=== PATIENT | female | born 1935 | race Caucasian/White ===

== ENCOUNTER 2017-08-03 11:32 | Inpatient (IN) ==
[2017-08-03 12:00] LABS: MANUAL DIFF NEEDED? NO
[2017-08-03 12:02] LABS: BASO% 0.5 % (0.0-0.8); EOS# 0.43 X1000 (0.0-0.7); EOS% 4.4 % (0.0-10.0); HEMATOCRIT 35.1 % (37.0-47.0); HEMOGLOBIN 11.9 g/dL (12.0-16.0); LYMPH# 1.09 X1000 (1.2-3.4); LYMPH% 11.1 % (20.5-51.1); MCH 29.1 PG (27-31); MCHC 33.9 g/dL (33-37); MCV 85.8 FL (81-99); MONO# 0.71 X1000 (0.11-0.59); MONO% 7.2 % (1.7-9.3); NEUT% 75.8 % (42.2-75.2); PLT 514 X1000 (130-400); RBC 4.09 XMIL (4.2-5.4)
--- NOTE | 2017-08-03 12:10 | EKG Report ---
Test Performed on : 08/03/2017 11:39:00 AM Test Reason : CHEST PAIN Blood Pressure : / mmHG Vent. Rate : 068 BPM Atrial Rate : 068 BPM P-R Int : 184 ms QRS Dur : 094 ms QT Int : 372 ms P-R-T Axes : 000 042 070 degrees QTc Int : 395 ms Normal sinus rhythm. Normal ECG When compared with ECG of 28-SEP-2016 17:11, Nonspecific T wave abnormality no longer evident in Anterior leads Unconfirmed Result
--- NOTE | 2017-08-03 12:14 | ED EKG INTERP ---
This chart was entered by Rona Metcalf Scribe, acting as scribe for Tan Escudero MD. EKG Interpretation - EKG Time of EKG reading by physician:: 11:39 EKG Read and Signed by:: Tan Escudero EKG Interpretation (*Must complete 3 of following elements*): Normal Rate: 68 Rhythm: normal sinus rhythm Comments: normal ECG Attestation - Physician/ NAYA Attestation The physician spent face to face time with patient:: Yes Advanced Practice Provider documentation review:: Supervising physician onsite and consulted in the evaluation and care of this patient. The physician did have a face to face encounter with the patient. This chart was documented by the indicated scribe, (Rona Metcalf Scribe) and accurately reflects the services I performed and decisions made by me, Tan Escudero MD, as attested by the provider's signature.
--- NOTE | 2017-08-03 12:41 | Diag Imaging Result Doc PS360 ---
EXAM: CHEST-PORTABLE HISTORY: weakness/cold sx TECHNIQUE: Portable AP COMPARISON: 09/28/2016 FINDINGS: The lungs are well expanded. The heart is not enlarged. The vessels are not distended. No pneumonia. No pleural effusions identified. IMPRESSION: Negative chest Electronically signed by Manish Ashton 08/03/2017 12:38 PM
[2017-08-03 12:56] LABS: ALBUMIN 3.5 g/dL (3.5-5.0); CALCIUM 9.1 mg/dL (8.8-10.2); MAGNESIUM 2.8 mg/dL (1.5-2.7); TOTAL BILIRUBIN 0.3 mg/dL (0.20-1.00); TOTAL PROTEIN 6.5 g/dL (6.3-8.3)
[2017-08-03 13:14] LABS: POTASSIUM 6.7 mmol/L (3.5-5.1)
[2017-08-03] MEDS ORDERED: ZOFRAN IV ONE (13:15)
[2017-08-03] MEDS ORDERED: NS 1,000 ML IV ONE ×2 (13:15→14:11)
[2017-08-03 13:53] LABS: ALBUMIN 3.2 g/dL (3.5-5.0); CALCIUM 8.9 mg/dL (8.8-10.2); TOTAL BILIRUBIN 0.2 mg/dL (0.20-1.00); TOTAL PROTEIN 6.1 g/dL (6.3-8.3)
[2017-08-03 13:57] LABS: POTASSIUM 6.7 mmol/L (3.5-5.1)
--- NOTE | 2017-08-03 14:17 | PROVIDER DOCUMENTATION ---
HPI-Abdominal Pain/GI Problem - General Chief Complaint: General Adult Stated Complaint: general Time Seen by Provider: 08/03/17 13:06 Source: patient, family (DAUGHTER) Allergies/Adverse Reactions: Patient Allergies Allergy/AdvReac Type Severity Reaction Status Date / Time No Known Allergies Allergy Verified 08/03/17 11:33 Home Medications: Home Medication List Medication Instructions Recorded Confirmed Last Taken Type Furosemide [Lasix] 40 mg PO DAILY 09/28/16 09/28/16 Unknown History Hydrocodone/APAP 5 mg/325 mg 5 mg PO 09/28/16 Unknown History [Keene-5] Penicillin V Potassium 500 mg PO 4XDAY #40 tablet 09/28/16 Unknown Rx Potassium Chloride 20 mg PO 09/28/16 Unknown History Valsartan/Hydrochlorothiazide 320 mg PO DAILY 09/28/16 09/28/16 Unknown History [Valsartan-Hctz 320-12.5 mg Tab] Penicillin V Potassium 500 mg PO Q6HR #28 tablet 05/12/17 Unknown Rx - History of Present Illness-ABD Nature of Presenting Problems: PT DAUGHTER STS THE WHOLE FAMILY HAS HAD STOMACH VIRUS BUT PT "JUST HASN'T GOTTEN BETTER SINCE". STS SHE HAS CONTINUED TO VOMIT AND HAS BEEN VERY WEEK ESPECIALLY THE PAST COUPLE OF DAYS. PT DENIES ABD PAIN AT PRESENT, STS HAS CHRONIC BACK PAIN THAT IS UNCOMFORTABLE. DENIES FEVER. Quality of Pain: reports: none Associated Symptoms: reports: diarrhea, fatigue, loss of appetite, nausea, vomiting, weakness Dark Stools Present?: reports: none noticed Review of Systems - Adult - REVIEW OF SYSTEMS - ADULT Constitutional: reports: fatique. denies: fever Eyes: reports: no symptoms reported Ears, Nose, Mouth & Throat: reports: no symptoms reported Cardiovascular: reports: no symptoms reported. denies: chest pain Respiratory: reports: no symptoms reported. denies: shortness of breath Gastrointestinal: reports: see HPI, abdominal pain, diarrhea, nausea, poor appetite, vomiting. denies: constipation Genitourinary: reports: no symptoms reported. denies: dysuria Musculoskeletal: reports: no symptoms reported Integumentary: reports: no symptoms reported Neurological: reports: no symptoms reported. denies: dizziness/vertigo, headache/migraines Psychiatric: reports: no symptoms reported Endocrine: reports: no symptoms reported Hematologic/Lymphatic: reports: no symptoms reported Allergic/Immunologic: reports: no symptoms reported All Other Systems: Reviewed and Negative Past History - Adult - PAST MEDICAL HISTORY-ADULT Review of Records: reports: Nursing Assessment Review, Medications Reviewed, Social history reviewed & non-contributory. Major Childhood Illnesses: reports: denies history Cardiovascular: reports: HTN, hyperlipidemia Respiratory: reports: denies history Gastrointestinal: reports: denies history Obstetrical/Gynecological: reports: denies history Genitourinary: reports: denies history Musculoskeletal: reports: denies history Neurological: reports: Alzheimer's, dementia Endocrine/Immune: reports: Diabetes Diabetes Type: Type 2 Diabetes controlled by:: PO Meds Other Conditions: reports: denies history - PRIOR SURGERIES/PROCEDURES Surgical/Procedure History: reports: appendectomy, cholecystectomy, hysterectomy - IMMUNIZATION STATUS Childhood Immunizations: See Nurse Assessment Flu Vaccine: See Nurse Assessment - FAMILY HISTORY Family History: reviewed, not pertinent Physical Exam-General - PHYSICAL EXAM-ADULT Initial Vital Signs Reviewed: Yes - CONSTITUTIONAL General Appearance: alert, no apparent distress, slow to respond - EYES Eyes: PERRL/EOMI, pink conjunctivae - HEAD, EARS, NOSE, MOUTH & THROAT HENMT: negative: moist mucous membranes (DRY) - RESPIRATORY Respiratory: chest non-tender, lungs clear, normal breath sounds, no pleuratic chest pain, no respiratory distress, no accessory muscle use - CARDIOVASCULAR Cardiovascular: regular rate, rhythm - GASTROINTESTINAL (ABDOMEN) Abdominal Exam: normal bowel sounds, non tender, soft, no organomegaly, no pulsatile mass. negative: distended, guarding, tenderness - MUSCULOSKELETAL Extremity: normal range of motion, normal inspection, normal capillary refill - SKIN Integumentary: normal color, normal turgor, warm/dry, rash (CANDIDAL INFECTION TO GROIN AND VAGINAL AREA) - NEUROLOGIC Neurologic: grossly normal, no motor/sensory deficits - PSYCHIATRIC Psych/Mental Status: normal mood/affect. negative: oriented x 3 (ORIENTED TO SELF ONLY) Progress - PLAN OF CARE/RESULTS Progress/Plan/Lab Results: Vital Signs - 8 hr 08/03/17 11:35 08/03/17 12:30 08/03/17 13:49 Temperature 97.0 F L Pulse Rate 69 64 68 Respiratory Rate 18 18 Blood Pressure 119/043 115/056 096/054 O2 Sat by Pulse Oximetry 97 99 99 Laboratory Results - last 24 hr 08/03/17 08/03/1717 11:55 11:55 11:55 WBC RBC Hgb Hct MCV MCH MCHC RDW Std Deviation Plt Count MPV Immature Gran % (Auto) Neut % (Auto) Lymph % (Auto) Ocean % (Auto) Eos % (Auto) Baso % (Auto) Immature Gran # (Auto) Neut # (Auto) Lymph # (Auto) Ocean # (Auto) Eos # (Auto) Baso # (Auto) Sodium 120 L* Potassium 6.7 H* Chloride 90 L Carbon Dioxide 18 L Anion Gap 12 BUN 89 H Creatinine 3.1 H Estimated GFR/1.73 m2 14 BUN/Creatinine Ratio 29 Glucose 114 H Calculated Osmolality 270 Calcium 9.1 Magnesium 2.8 H Total Bilirubin 0.30 AST 18 ALT 9 L Alkaline Phosphatase 64 Creatine Kinase 136 Troponin T 0.020 Lfj-C-Gtrfimrudos Pept 889 H Total Protein 6.5 Albumin 3.5 Globulin 3.0 Albumin/Globulin Ratio 1.0 08/03/17 08/03/17 11:55 13:20 WBC 9.86 RBC 4.09 L Hgb 11.9 L Hct 35.1 L MCV 85.8 MCH 29.1 MCHC 33.9 RDW Std Deviation 12.8 Plt Count 514 H MPV 8.0 Immature Gran % (Auto) 1.0 H Neut % (Auto) 75.8 H Lymph % (Auto) 11.1 L Ocean % (Auto) 7.2 Eos % (Auto) 4.4 Baso % (Auto) 0.5 Immature Gran # (Auto) 0.10 H Neut # (Auto) 7.48 H Lymph # (Auto) 1.09 L Ocean # (Auto) 0.71 H Eos # (Auto) 0.43 Baso # (Auto) 0.05 Sodium 121 L Potassium 6.7 H* Chloride 92 L Carbon Dioxide 17 L Anion Gap 13 BUN 90 H Creatinine 3.1 H Estimated GFR/1.73 m2 14 BUN/Creatinine Ratio 29 Glucose 107 H Calculated Osmolality 272 Calcium 8.9 Magnesium Total Bilirubin 0.20 AST 17 ALT 8 L Alkaline Phosphatase 61 Creatine Kinase Troponin T Kzi-I-Cfsjoklgrrc Pept Total Protein 6.1 L Albumin 3.2 L Globulin 3.0 Albumin/Globulin Ratio 1.0 Orders Category Date Time Status Cardiac Monitoring DIRECTED Care 08/03/17 11:42 Active Saline Loc NOW Care 08/03/17 11:42 Active CHEST-PORTABLE [RAD] Stat Exams 08/03/17 11:43 Completed CBC WITH ELECTRONIC DIFF [HEME] Stat Lab 08/03/17 11:55 Completed CK PROFILE [SP CHEM] Stat Lab 08/03/17 11:55 Completed CMP [COMPREHENSIVE METABOLIC PANEL] [CHEM] Stat Lab 08/03/17 13:20 Completed COMPREHENSIVE METABOLIC PANEL [CHEM] Stat Lab 08/03/17 11:55 Completed MAGNESIUM [CHEM] Stat Lab 08/03/17 11:55 Completed PRO B-NATRIURETIC PEPTIDE Stat Lab 08/03/17 11:55 Completed TROPONIN T Stat Lab 08/03/17 11:[address] W/POSS RFLX CULT [URINALYSIS] Stat Lab 08/03/17 13:27 Uncollected 0.9% Sodium Chloride Inj [Ns] 1,000 ml Med 08/03/17 14:11 Ordered IV 125 mls/hr 0.9% Sodium Chloride Inj [Ns] 1,000 ml Med 08/03/17 13:15 Active IV 999 mls/hr Ondansetron [Zofran] Med 08/03/17 13:15 Discontinued 4 mg IV NOW ONE EKG [EKG] Stat Ther 08/03/17 11:42 Draft EKG [EKG] Stat Ther 08/03/17 11:42 Ordered Result Diagrams: 08/03/17 11:55 08/03/17 13:20 - XRAY 1 XRAY Study: Chest Impression: Normal, See EMR Report XRAY Interpretation: NO ACUTE CHANGES.-DR. MISTRY - CONSULTS/PCP/HOSPITALIST Notification #1 *Consult/PCP/Hospitalist*: DR. GIBBS Time Discussed: 14:13 Consult Disposition: Admit Departure - Departure Date of Disposition Decision: 08/03/17 Time of Disposition Decision: 14:13 DIAGNOSIS: Hyponatremia, Hyperkalemia Acute renal failure Qualifiers: Acute renal failure type: unspecified Qualified Code(s): N17.9 - Acute kidney failure, unspecified Disposition: ADMITTED INPATIENT 09 Certified Medical Emergency: Emergent Condition: Good Referrals and Follow-Ups: None,PCP [Primary Care Provider] - - Critical Care Note This patient required my direct & personal management of CC.: No Attestation - Physician/ NAYA Attestation Patient care was provided by Advanced Practice Provider:: Yes Advanced Practice Provider:: Jeni Pfeiffer Advanced Practice Provider documentation review:: The Mid-level provider documentation, treatment plan and medical decision making was reviewed by the physician who agrees with all treatment and medical decision making by the MLP. The physician spent face to face time with patient:: No Advanced Practice Provider documentation review:: Supervising physician onsite and consulted in the evaluation and care of this patient. The physician did not have a face to face encounter with the patient.
[2017-08-03] MEDS ORDERED: MORPHINE IV ONE (14:31)
[2017-08-03 15:04] LABS: URINE CULTURE PL NEEDED? NO
[2017-08-03 15:26] LABS: BILIRUBIN URINE NEGATIVE (NEGATIVE); BLOOD URINE NEGATIVE (NEGATIVE); GLUCOSE URINE NEGATIVE (NEGATIVE); LEUKOCYTES URINE NEGATIVE (NEGATIVE); NITRITE URINE NEGATIVE (NEGATIVE); PROTEIN URINE NEGATIVE (NEGATIVE); SP GRAVITY URINE 1.015; UROBILINOGEN URINE NORMAL
[2017-08-03 15:27] LABS: CLARITY CLEAR (CLEAR); COLOR YELLOW
[2017-08-03 15:29] LABS: URINE RBC <10 /HPF (<10); URINE SOURCE CATH; URINE WBC <10 /HPF (<10)
[2017-08-03] MEDS ORDERED: ZOFRAN IV PRN (16:33)
[2017-08-03] MEDS: SODIUM CHLORIDE 0.9% INJ SCH (17:37)
[2017-08-03] MEDS: PROTONIX IV SCH (17:37)
[2017-08-03] MEDS: MYCOSTATIN OINTMENT TOP SCH (17:38)
[2017-08-03] MEDS: DIFLUCAN PO SCH (17:57)
[2017-08-03 18:25] LABS: CALCIUM 8.9 mg/dL (8.8-10.2)
[2017-08-03] MEDS ORDERED: KAYEXALATE PO ONE (18:54)
[2017-08-03] MEDS ORDERED: SODIUM BICARBONATE PO ONE (18:59)
[2017-08-03 20:28] LABS: POTASSIUM 6.1 mmol/L (3.5-5.1)
--- NOTE | 2017-08-03 20:41 | EKG Report ---
Test Performed on : 08/03/2017 8:26:45 PM Test Reason : Abnormal telemetry reading Blood Pressure : / mmHG Vent. Rate : 079 BPM Atrial Rate : 079 BPM P-R Int : 198 ms QRS Dur : 096 ms QT Int : 358 ms P-R-T Axes : 081 059 080 degrees QTc Int : 410 ms Normal sinus rhythm. Normal ECG When compared with ECG of 03-AUG-2017 11:39, (Unconfirmed) No significant change was found Confirmed by Tan Escudero MD ([id number]) on 08/11/2017 1:12:42 PM
[2017-08-03] MEDS: HUMALOG DOSE (PARKWAY) SUBQ SCH (21:02)
[2017-08-03] MEDS: SANTYL OINT TOP SCH (21:20)
[2017-08-03] MEDS ORDERED: NORCO-5 PO PRN (21:20)
[2017-08-03] MEDS ORDERED: HYDROXYZINE PO PRN (21:20)
[2017-08-03] MEDS ORDERED: GLUCOPHAGE PO SCH (21:30)
[2017-08-04] MEDS: NS 1,000 ML IV SCH ×2 (01:00→11:12)
[2017-08-04] MEDS: MYCOSTATIN OINTMENT TOP SCH ×3 (01:48→17:38)
[2017-08-04] MEDS: NORCO-5 PO PRN ×2 (02:19→09:06)
[2017-08-04] MEDS: HUMALOG DOSE (PARKWAY) SUBQ SCH ×4 (06:25→20:40)
[2017-08-04 06:26] LABS: ALBUMIN 2.4 g/dL (3.5-5.0); CALCIUM 7.9 mg/dL (8.8-10.2); HEMATOCRIT 27.8 % (37.0-47.0); MAGNESIUM 2.5 mg/dL (1.5-2.7); MCH 28.7 PG (27-31); MCHC 32.4 g/dL (33-37); MCV 88.5 FL (81-99); MPV 8.3 FL (7.4-10.4); POTASSIUM 5.3 mmol/L (3.5-5.1); RBC 3.14 XMIL (4.2-5.4); TOTAL BILIRUBIN 0.2 mg/dL (0.20-1.00); TOTAL PROTEIN 5.1 g/dL (6.3-8.3)
[2017-08-04] MEDS: SYNTHROID PO SCH (06:26)
[2017-08-04] MEDS ORDERED: HYDROCHLOROTHIAZIDE PO SCH (09:00)
--- NOTE | 2017-08-04 09:05 | HISTORY AND PHYSICAL ---
CHIEF COMPLAINT: Dehydration and generalized weakness. HISTORY OF PRESENT ILLNESS: This is an 82-year-old female with a history of Alzheimer's dementia, diabetes mellitus, and hypertension who presented to the emergency room with family members. The patient is oriented to herself only and there are no family members present. Therefore, the history is taken from the ER records and chart. According to the chart, the daughters state that everyone in their family has had a stomach virus and had been sick over the past week or two, and that the patient had a stomach virus but she has just not gotten better. She has continued to vomit off and on, had been very weak with very little p.o. intake. The family constipation. They did state that she had some diarrhea throughout this. With labs, she was noted to have a sodium of 120, with a potassium of 6.7, a BUN of 89, and a creatinine of 3.1. Magnesium of 2.8. She was given a liter of saline bolus in the emergency room and admitted for further evaluation and treatment. PAST MEDICAL HISTORY: Diabetes mellitus, hyperlipidemia, hypertension, peripheral vascular disease, peripheral neuropathy, hypothyroid. PAST SURGICAL HISTORY: Hysterectomy, cholecystectomy, tubal ligation, and splenectomy. ALLERGIES: No known drug allergies. HOME MEDICATIONS: A list will be obtained. REVIEW OF SYSTEMS: Unable to obtain from the patient at present. PHYSICAL EXAMINATION: GENERAL: This is a very pleasant, 82-year-old female who is sitting up in the bed, in no distress. VITAL SIGNS: Blood pressure is 125/62, with a heart rate of 75, respirations are 18, temperature is 97.6 degrees oral, with room air saturations 100%. HEENT: Head is normocephalic and atraumatic. Pupils are equal, round, react to light. EOMs are intact. Sclerae are anicteric. Mucous membranes are dry. NECK: Supple with trachea midline. CARDIOVASCULAR: Regular rate and rhythm. S1 and S2 are appreciated. PULMONARY: Breath sounds are clear with no increased work of breathing noted. Chest does rise and fall symmetrically with respiration. GASTROINTESTINAL: Abdomen is soft, nontender, nondistended with bowel sounds in all 4 quadrants. MUSCULOSKELETAL: Good range of motion to joints. EXTREMITIES: No clubbing, cyanosis, or edema. Pulses are palpable x4. Calves are nontender. NEUROLOGIC: She is alert. She is oriented to herself only. She is very cooperative. SKIN: Warm and dry with kenroy rash noted to groin and vaginal area. LABS: WBC is 9.8, with a hemoglobin of 11.9, hematocrit 35.1, and platelets of 514,000. Sodium is 121, with a potassium of 6.7, CO2 is 17, BUN is 90, with a creatinine of 3.1, glucose of 107. Urinalysis is essentially negative. Chest x-ray revealed a negative chest. ASSESSMENT AND PLAN: 1. Acute kidney injury. This is most likely secondary to dehydration. We will hold any renal toxic medications. We will continue with hydration and trend labs. 2. Hyponatremia. We will continue with normal saline and trend labs. 3. Hyperkalemia. We will hold any potassium supplements if the patient has been on them. We will repeat a BMP at 5 o'clock and if potassium continues to be elevated, we can treat with Kayexalate. EKG reveals sinus rhythm at a rate of 68 with a QTc of 395. 4. History of Alzheimer's dementia. Aware. 5. Hypertension. 6. Diabetes mellitus. Pattern blood glucose with sliding scale insulin. 7. Hypothyroidism. If the TSH was not checked, we will check one. 8. Chronic back pain. Aware. 9. Chronic kidney disease with a creatinine of 1.3-1.5 over the last, it looks like, 4 or 5 years. We will hydrate. We will hold renal toxic medications and trend creatinines as hers has been 3.1 this admission. 10. Further treatments pending hospital course. Dictated by CHERYLE Rich for Uli Lazcano MD cc: CHERYLE Rich MD
[2017-08-04] MEDS: EXELON PO SCH ×2 (09:06→21:27)
[2017-08-04] MEDS: DIOVAN PO SCH (09:08)
[2017-08-04] MEDS: DIFLUCAN PO SCH (09:08)
[2017-08-04] MEDS: VESICARE PO SCH (09:08)
[2017-08-04] MEDS: VITAMIN C PO SCH (09:08)
[2017-08-04] MEDS: PATIENT'S OWN MED MISC SCH (09:09)
[2017-08-04] MEDS: SANTYL OINT TOP SCH (09:09)
[2017-08-04] MEDS: HYDROXYZINE PO SCH ×2 (13:19→21:27)
--- NOTE | 2017-08-04 15:47 | PROGRESS NOTE ---
DATE: 08/04/2017 SUBJECTIVE: The patient is sitting up in bed. She denies any complaints. She has had no further vomiting. She did state that she took in liquids with no difficulty. OBJECTIVE: Vital Signs: Blood pressure is 110/41, with a heart rate of 71, respirations are 18, temperature is 98.1 degrees oral with room air saturations of 97%-100%. Cardiovascular: Regular rate and rhythm. S1 and S2 are appreciated. Pulmonary: Breath sounds are clear with no increased work of breathing noted. Gastrointestinal: Abdomen is soft, nontender, nondistended with bowel sounds in all 4 quadrants. Extremities: No clubbing, cyanosis, or edema. Pulses are palpable x4. Calves nontender. Neurologic: She is awake. She is alert. LABS: WBC is 7.25, with hemoglobin of 9, hematocrit 27.8, and platelets of 412,000. Sodium is 129, potassium is 5.3. BUN is 67, creatinine 2.4, with a glucose of 79. ASSESSMENT: 1. Acute kidney injury. This is most likely secondary to dehydration. This is improving with hydration. We will continue and trend her labs. We will hold any renal toxic medications. 2. Hyponatremia. Sodium is improving with hydration. We will continue. 3. Hyperkalemia. She was given 1 dose of Kayexalate along with hydration. Sodium was 6.1, is 5.3 this morning. We will continue to hydrate and trend her labs. 4. History of Alzheimer's dementia. Aware. 5. Hypertension. Aware. 6. Diabetes mellitus. We will continue pattern blood glucose with sliding scale insulin. We will hold her metformin. 7. Hypothyroid. We will continue with her current regimen. 8. Chronic back pain. Aware. 9. Chronic kidney disease with a baseline creatinine of 1.3-1.5, as stated above. Dictated by CHERYLE Rich for Uli Lazcano MD cc: CHERYLE Rich MD
--- NOTE | 2017-08-04 17:28 | PROGRESS NOTE ---
DATE: 08/04/2017 SUBJECTIVE: Patient without any new complaints today. The daughter notes that she is starting to look a little bit better and she is feeling better. The daughter notes that she seems to be closer back to her baseline mental status. PHYSICAL: Vital signs: Temperature 98.1, pulse 71, respiratory 18, BP 104/41. General: Patient is awake, alert. She is currently in no respiratory distress. She is pleasant to talk with. Neck: Supple. CV: Regular rate, no murmurs. Chest: Clear, nonlabored. Abdomen: Soft, nondistended. Extremities: Moves all extremities. Skin: No rashes. ASSESSMENT: 1. Acute kidney injury. 2. Acute volume depletion. 3. Hyponatremia. 4. Alzheimer type dementia. 5. Hypertension. 6. Hyperkalemia improved, potassium is down to 5.3 from 6.1. 7. Acute on chronic renal failure, serum creatinine is actually improved a little, was 2.8 on admit, currently she is down to 2.4. PLAN: Will continue IV fluids. Continue to replace potassium. Further orders as needed. cc: Uli Lazcano MD
[2017-08-04] MEDS: PROTONIX IV SCH (17:38)
[2017-08-04] MEDS: SODIUM CHLORIDE 0.9% INJ SCH (17:38)
[2017-08-04] MEDS: CULTURELLE PO SCH (21:27)
[2017-08-05] MEDS: NORCO-5 PO PRN (01:01)
[2017-08-05] MEDS: NS 1,000 ML IV SCH ×2 (04:18→12:53)
[2017-08-05] MEDS: MYCOSTATIN OINTMENT TOP SCH ×3 (04:18→18:58)
[2017-08-05] MEDS: HYDROXYZINE PO SCH ×3 (06:30→20:19)
[2017-08-05] MEDS: SYNTHROID PO SCH (06:30)
[2017-08-05] MEDS: HUMALOG DOSE (PARKWAY) SUBQ SCH ×4 (06:33→20:17)
[2017-08-05 06:51] LABS: CALCIUM 7.7 mg/dL (8.8-10.2); POTASSIUM 5.2 mmol/L (3.5-5.1)
[2017-08-05] MEDS ORDERED: HALDOL IV PRN (08:01)
[2017-08-05] MEDS ORDERED: DESYREL PO PRN (08:01)
[2017-08-05] MEDS ORDERED: BENADRYL IV PRN (08:02)
[2017-08-05] MEDS: DIFLUCAN PO SCH (09:24)
[2017-08-05] MEDS: EXELON PO SCH ×2 (09:24→20:19)
[2017-08-05] MEDS: DIOVAN PO SCH (09:24)
[2017-08-05] MEDS: VITAMIN C PO SCH (09:25)
[2017-08-05] MEDS: VESICARE PO SCH (09:25)
[2017-08-05] MEDS: PATIENT'S OWN MED MISC SCH (09:25)
[2017-08-05] MEDS: SODIUM CHLORIDE 0.9% INJ SCH (16:10)
[2017-08-05] MEDS: PROTONIX IV SCH (16:10)
[2017-08-05] MEDS: CULTURELLE PO SCH (20:19)
--- NOTE | 2017-08-05 21:02 | PROGRESS NOTE ---
DATE: 08/05/2017 Note: The entire history is per the daughter due to patient's dementia. SUBJECTIVE: Notes that she is starting to feel a little bit better. She has not really been getting out of bed. Denies any chest pains. Denies any fevers or chills. Denies any GI or issues. OBJECTIVE: Vital signs: Temperature 98. Pulse 55, respiratory rate 18, blood pressure 106/44, saturation 97% on room air. General: Patient is awake, alert. She is lying in bed. She is currently in no distress. She does have a bad night last night and became quite agitated. Daughter is asking for something to help her sleep at night. HEENT: Normocephalic, atraumatic. [place]. Neck: Supple. No JVD. CARDIOVASCULAR: Regular rate. No murmurs. Chest: Clear. Nonlabored. Abdomen: Soft, nondistended. Extremities: Moves all extremities. LABORATORIES: Reviewed. ASSESSMENT: 1. Acute kidney injury. Serum creatinine starting to improve. 2. Hyponatremia, improving. Sodium is up to 129. 3. Hyperkalemia, potassium is down to 5.2. 4. Acute kidney injury. Creatinine was 3.1 on admit. Currently down to 1.8. PLAN: We will continue IV fluids tonight. I did write for Haldol if needed as well as restart her home medications. Hopefully home in 1-2 days. cc: Uli Lazcano MD
[2017-08-06] MEDS: NORCO-5 PO PRN ×3 (01:49→21:34)
[2017-08-06] MEDS: MYCOSTATIN OINTMENT TOP SCH ×3 (02:32→17:32)
[2017-08-06] MEDS: HYDROXYZINE PO SCH ×2 (04:53→11:32)
[2017-08-06] MEDS: SYNTHROID PO SCH (06:25)
[2017-08-06] MEDS: PROTONIX PO SCH (06:25)
[2017-08-06] MEDS: HUMALOG DOSE (PARKWAY) SUBQ SCH ×3 (06:26→17:32)
[2017-08-06] MEDS: EXELON PO SCH ×2 (09:03→21:35)
[2017-08-06] MEDS: VESICARE PO SCH (09:03)
[2017-08-06] MEDS: DIOVAN PO SCH (09:04)
[2017-08-06] MEDS: VITAMIN C PO SCH (09:04)
[2017-08-06] MEDS: PATIENT'S OWN MED MISC SCH (09:04)
[2017-08-06] MEDS: DIFLUCAN PO SCH (09:04)
[2017-08-06] MEDS: NS 1,000 ML IV SCH ×2 (11:26→11:27)
[2017-08-06 13:18] LABS: CALCIUM 8.1 mg/dL (8.8-10.2); POTASSIUM 4.8 mmol/L (3.5-5.1)
[2017-08-06] MEDS ORDERED: NS 1,000 ML IV SCH (15:32)
--- NOTE | 2017-08-06 17:19 | PROGRESS NOTE ---
DATE: 08/06/2017 SUBJECTIVE: The patient has no focal complaints. Pleasantly confused. OBJECTIVE: Vital signs: Blood pressure 130/52, heart rate 61, respiratory 20, temperature 98.3 degrees, 100% on room air. Cardiovascular: Regular rate and rhythm. Pulmonary: Bilateral breath sounds. Clear to auscultation. GI: Soft, nontender, nondistended. Bowel sounds are positive. LABORATORY DATA: White count, none today. Sodium is up to though to 136, creatinine is down to 1.3. BUN of 34. PROBLEM LIST: 1. Acute kidney injury. This seems to be resolving. I am going to decrease her fluids. 2. Hyponatremia, likely related to blood pressure medication effect. 3. Dementia, she appears to be doing much better. DISPOSITION: Plan is to hopefully get home in the next 1-2 days. cc: Daniel Hadley MD
[2017-08-06] MEDS: CULTURELLE PO SCH (21:35)
[2017-08-07] MEDS: MYCOSTATIN OINTMENT TOP SCH ×3 (02:42→21:40)
[2017-08-07] MEDS: HUMALOG DOSE (PARKWAY) SUBQ SCH ×5 (03:03→21:35)
[2017-08-07] MEDS: HYDROXYZINE PO SCH ×5 (03:03→21:42)
[2017-08-07] MEDS: SYNTHROID PO SCH (06:21)
[2017-08-07] MEDS: PROTONIX PO SCH (06:21)
[2017-08-07 06:37] LABS: CALCIUM 8.1 mg/dL (8.8-10.2); POTASSIUM 4.4 mmol/L (3.5-5.1)
[2017-08-07 06:49] LABS: HEMATOCRIT 29.4 % (37.0-47.0); HEMOGLOBIN 9.2 g/dL (12.0-16.0); MCH 28.7 PG (27-31); MCHC 31.3 g/dL (33-37); MCV 91.6 FL (81-99); MPV 8.6 FL (7.4-10.4); RBC 3.21 XMIL (4.2-5.4)
[2017-08-07] MEDS: EXELON PO SCH ×2 (08:49→21:36)
[2017-08-07] MEDS: VESICARE PO SCH (08:50)
[2017-08-07] MEDS: DIOVAN PO SCH (08:50)
[2017-08-07] MEDS: VITAMIN C PO SCH (08:50)
[2017-08-07] MEDS: DIFLUCAN PO SCH (08:50)
[2017-08-07] MEDS: PATIENT'S OWN MED MISC SCH (13:46)
[2017-08-07] MEDS ORDERED: DULCOLAX PR ONE (17:37)
--- NOTE | 2017-08-07 17:48 | PROGRESS NOTE ---
DATE: 08/07/2017 SUBJECTIVE: The patient has no focal complaints. OBJECTIVE: Vital Signs: Blood pressure 120/44, heart rate 69, respiratory rate 20, temperature 98.4. Cardiovascular: Regular rate and rhythm. Pulmonary: Bilateral breath sounds. Clear to auscultation. GI: Soft, nontender, nondistended. Bowel sounds are positive. Extremities: No clubbing or cyanosis. Lymphatics: No peripheral edema. Neurological: Nonfocal. LABORATORY DATA: White count 8, hemoglobin and hematocrit 9 and 29. Creatinine 1.2. PROBLEM LIST: 1. Acute kidney injury. This appears to be resolving. Plan to discharge, hopefully tomorrow. 2. Hyponatremia, likely related to hydrochlorothiazide. Also has resolved. We will stop her fluids and follow clinically. 3. Dementia appears to be stable. DISPOSITION: Anticipate discharge tomorrow hopefully with home health. We will continue to follow closely. Her family would prefer doing home PT versus home health at discharge. Again, anticipate. Hopefully we can do that tomorrow. cc: Daniel Hadley MD
[2017-08-07] MEDS: CULTURELLE PO SCH (21:36)
[2017-08-07] MEDS: NORCO-5 PO PRN (23:09)
[2017-08-08] MEDS: MYCOSTATIN OINTMENT TOP SCH (01:52)
[2017-08-08 06:14] LABS: HEMATOCRIT 32.7 % (37.0-47.0); HEMOGLOBIN 10.2 g/dL (12.0-16.0); MCH 28.4 PG (27-31); MCHC 31.2 g/dL (33-37); MCV 91.1 FL (81-99); MPV 8.5 FL (7.4-10.4); RBC 3.59 XMIL (4.2-5.4)
[2017-08-08] MEDS: PROTONIX PO SCH (06:21)
[2017-08-08] MEDS: SYNTHROID PO SCH (06:21)
[2017-08-08] MEDS: HYDROXYZINE PO SCH ×2 (06:22→13:00)
[2017-08-08 06:26] LABS: CALCIUM 8.4 mg/dL (8.8-10.2); POTASSIUM 4.4 mmol/L (3.5-5.1)
[2017-08-08] MEDS: HUMALOG DOSE (PARKWAY) SUBQ SCH ×3 (07:13→16:51)
[2017-08-08] MEDS: EXELON PO SCH (08:45)
[2017-08-08] MEDS: VITAMIN C PO SCH (08:46)
[2017-08-08] MEDS: DIOVAN PO SCH (08:46)
[2017-08-08] MEDS: VESICARE PO SCH (08:46)
[2017-08-08] MEDS: DIFLUCAN PO SCH (08:46)
[2017-08-08] MEDS ORDERED: CALMOSEPTINE OINTMENT TOP PRN (10:49)
[2017-08-08] MEDS: PATIENT'S OWN MED MISC SCH (12:17)
[2017-08-08 16:43] VITALS: BP 97/56
--- NOTE | 2017-08-10 10:05 | DISCHARGE SUMMARY ---
ADMISSION DATE: 08/03/2017 DISCHARGE DATE: 08/08/2017 DISCHARGE DIAGNOSES: 1. Acute kidney injury. 2. Hyponatremia. 3. Dementia. HISTORY OF PRESENT ILLNESS: This is an 82-year-old female, presenting from home with confusion. She had nausea, vomiting, diarrhea, and gastroenteritis, presented with a BUN and creatinine of 89 and 3.1, potassium 6.7, and sodium of 120. She was placed on IV fluids, and slowly improved. Her baseline creatinine is around 1.3 to 1.5. She was given Kayexalate, and improved after hydration. Creatinine at the time of discharge was 1.1. She was having still some difficulty getting up and around. Family wanted to pursue home health and home physical therapy. Blood pressure 97/56 at time of discharge, heart rate 63, respiratory rate 18, temperature 98.2 degrees. No significant issues otherwise. She was discharged in stable condition. DISCHARGE MEDICATIONS: Vitamin C 500 daily, Santyl, Diflucan 100 daily for another 7 days, [place] p.r.n., hydroxyzine 25 t.i.d. p.r.n., Lactinex daily, Synthroid 88 daily, metformin 500 daily, Zofran p.r.n., MiraLAX 17 daily, rivastigmine 3 b.i.d., VESIcare 5 daily, tumeric daily, and valsartan/hydrochlorothiazide. I am going to stop her hydrochlorothiazide and just put her on plain valsartan at 320 daily because it likely contributed to her dehydration and other issues. We are going to set her up with home PT and home health. DISCHARGE CONDITION: Stable. TIME SPENT: 32 minutes. cc: MD Daniel Birmingham MD Adnan A. Seljuki, MD
== END 2017-08-08 20:00 | disposition home health service (06) ==
LOC: P.ED 11:32 → SUATTDRO 14:24 → P.MEDSURG 14:24
PROVIDERS: ATTEND Internal Medicine